=== PATIENT | female | born 1970 ===

== ENCOUNTER 2018-05-12 08:50 | Emergency (ER) | payer OTHER ==
[2018-05-12 09:27] LABS: HCG,QUALITATIVE URINE NEGATIVE (NEGATIVE)
[2018-05-12 09:29] LABS: SQUAMOUS EPITHIAL 1 /hpf (0-5); URINE BACTERIA RARE (<OCC); URINE BILIRUBIN NEGATIVE (NEGATIVE); URINE BLOOD 3+ (NEGATIVE); URINE COLOR Yellow (YELLOW); URINE GLUCOSE (UA) NORMAL (Normal); URINE LEUKOCYTE ESTERASE TRACE Leu/uL (Negative); URINE PROTEIN NEGATIVE (NEGATIVE); URINE UROBILINOGEN NORMAL mg/dL (0.2-1.0)
[2018-05-12 09:30] LABS: URINE CLARITY SLHAZY (Clear)
[2018-05-12] MEDS ORDERED: Alum-Mag Hydrox-Simethicone Susp (30 mL) PO STA (09:39)
--- NOTE | 2018-05-12 09:42 | C.PDOC ---
History Of Present Illness 47 year old female presents to the ED for evaluation of abdominal cramping and loose stool x5 that began 5am this morning. Patient reports she ate beef soup for dinner which she believes resulted in her current symptoms. She notes the family ate the same meal, they don't express similar symptoms. Admits to drinking a mixture of lemon and coca-cola with no improvement. Denies vomiting, nausea, fever, and any other associated symptoms. Time Seen by Provider: 05/12/18 09:02 Chief Complaint (Nursing): GI Problem History Per: Patient History/Exam Limitations: no limitations Onset/Duration Of Symptoms: Hrs Current Symptoms Are (Timing): Still Present Context: Food (beef soup.) Past Medical History Reviewed: Historical Data, Nursing Documentation, Vital Signs Vital Signs: Last Vital Signs Temp 97.9 F 05/12/18 09:05 Pulse 72 05/12/18 09:05 Resp 16 05/12/18 09:05 BP 130/81 05/12/18 09:05 Pulse Ox 97 05/12/18 09:05 Family History: States: Unknown Family Hx - Social History Hx Tobacco Use: No Hx Alcohol Use: Yes Hx Substance Use: No - Immunization History Hx Tetanus Toxoid Vaccination: No Hx Influenza Vaccination: No Hx Pneumococcal Vaccination: No Review Of Systems Except As Marked, All Systems Reviewed And Found Negative. Constitutional: Negative for: Fever Gastrointestinal: Positive for: Abdominal Pain (cramping.), Diarrhea (loose stool x5). Negative for: Nausea, Vomiting Physical Exam - Physical Exam Appears: Non-toxic, No Acute Distress, Other (obese female.) Skin: Normal Color, Warm, Dry Head: Atraumatic, Normacephalic Eye(s): bilateral: Normal Inspection Oral Mucosa: Moist Neck: Normal ROM, Supple Chest: Symmetrical, No Deformity Cardiovascular: Rhythm Regular, No Murmur Respiratory: Normal Breath Sounds, No Rales, No Rhonchi, No Wheezing Gastrointestinal/Abdominal: Normal Exam, Bowel Sounds (normal.), Soft, No Tenderness, No Distention, No Guarding, No Rebound Neurological/Psych: Oriented x3, Normal Speech ED Course And Treatment O2 Sat by Pulse Oximetry: 97 (RA) Pulse Ox Interpretation: Normal Medical Decision Making Medical Decision Making: diarrhea x 5 liquid stools w belly cramping belly benign no sick contacts @ home 3 other in family ate same beef soup last night ? viral vs food symptomatic relief no w/u indicated. Plan: -Urine HCG Urinalysis Bentyl Maalox Plus Progress/Update: Patient stable for discharge home. Prescribed Dicyclomine. Disposition Doctor Will See Patient In The: Office Counseled Patient/Family Regarding: Studies Performed, Diagnosis - Disposition Referrals: [facility] [Outside] [facility] [Outside] [facility] [Outside] Disposition: HOME/ ROUTINE Disposition Time: 09:42 Condition: GOOD Additional Instructions: laureano mecca agua/te/gatorade Dieta Blanda: Banana, arroz allen, manzana, sepulveda pao Bendyl 10 mg 3 veces al rosalba par cramps del abdomen Maalox 30 cc (lashae cucharada) cada 2-3 horas brigida necessario Sigue en [facility] brigida necessario. Prescriptions: Dicyclomine [Dicyclomine HCl] 10 mg PO TID PRN #10 cap PRN Reason: cramps Instructions: Diarrhea in Adolescents and Adults Forms: [employer] (Nepalese), Work Excuse Print Language: CAMEROONIAN - Clinical Impression Clinical Impression: Diarrhea - Scribe Statement The provider has reviewed the documentation as recorded by the Scribe (Keshia Lau) Provider Attestation: All medical record entries made by the Scribe were at my direction and personally dictated by me. I have reviewed the chart and agree that the record accurately reflects my personal performance of the history, physical exam, medical decision making, and the department course for this patient. I have also personally directed, reviewed, and agree with the discharge instructions and disposition.
[2018-05-12] MEDS ORDERED: Aluminum Hydroxide/Magnesium Hydroxide Susp (30 mL) ONE (09:56)
[2018-05-12 11:23] VITALS: BP 130/81; PULSE 72; RESP 16; TEMP 97.9; O2SAT 97
== END 2018-05-12 09:59 | disposition home or self-care (01) ==
LOC: C.ER 08:50
DX: R19.7 Diarrhea, unspecified (principal)

== ENCOUNTER 2018-06-09 18:52 | Emergency (ER) | payer SELFPAY ==
[2018-06-09 18:59] VITALS: BP 139/83; PULSE 78; RESP 18; TEMP 97.8; O2SAT 95
--- NOTE | 2018-06-09 19:21 | C.PDOC ---
History Of Present Illness 48 year old female presents to the ED for evaluation of pain to the right thigh pain for two weeks. Patient reports she was seen by Dr. Simpson 2 weeks ago, diagnosed with shingles, and prescribed an unknown medication for the rash with improvement. Patient followed up with Dr. Simpson 8 days ago for current pain, was prescribed Percocet and Neurontin, with no significant improvement prompting ED visit. Denies fever, trauma, change in sensation, nausea, vomiting, dysuria, urinary changes, and any other associated symptoms. Time Seen by Provider: 06/09/18 19:12 Chief Complaint (Nursing): Abnormal Skin Integrity History Per: Patient, Family (daughter) History/Exam Limitations: no limitations Onset/Duration Of Symptoms: Days Current Symptoms Are (Timing): Still Present Past Medical History Reviewed: Historical Data, Nursing Documentation, Vital Signs Vital Signs: Last Vital Signs Temp 97.8 F 06/09/18 18:56 Pulse 78 06/09/18 18:56 Resp 18 06/09/18 18:56 BP 139/83 06/09/18 18:56 Pulse Ox 95 06/09/18 18:56 Family History: States: Unknown Family Hx - Social History Hx Tobacco Use: No Hx Alcohol Use: Yes Hx Substance Use: No - Immunization History Hx Tetanus Toxoid Vaccination: No Hx Influenza Vaccination: No Hx Pneumococcal Vaccination: No Review Of Systems Except As Marked, All Systems Reviewed And Found Negative. Constitutional: Negative for: Fever Gastrointestinal: Negative for: Nausea, Vomiting Genitourinary: Negative for: Dysuria, Frequency, Incontinence Musculoskeletal: Positive for: Leg Pain (right leg pain secondary to shingles. ) Physical Exam - Physical Exam Appears: Well, Non-toxic, No Acute Distress Skin: Warm, Dry Head: Atraumatic, Normacephalic Eye(s): bilateral: Normal Inspection, EOMI Nose: Normal Oral Mucosa: Moist Neck: Normal ROM, Supple Chest: Symmetrical Respiratory: No Accessory Muscle Use, Other (no acute respiratory distress.) Gastrointestinal/Abdominal: Soft, No Tenderness Back: No CVA Tenderness, No Vertebral Tenderness, No Straight Leg Raising Extremity: Normal ROM (x4), Tenderness (diffiuse buttock and thigh tenderness, no swelling, hyperpigmentation from resolving rash), No Pedal Edema, Capillary Refill (less than 2 seconds.), No Deformity, No Swelling Extremity: Bilateral: Atraumatic, Normal ROM Pulses: Left Dorsalis Pedis: Normal, Right Dorsalis Pedis: Normal Neurological/Psych: Oriented x3, Normal Speech, Normal Motor, Normal Sensation Gait: Steady ED Course And Treatment O2 Sat by Pulse Oximetry: 95 (RA) Pulse Ox Interpretation: Normal Progress Note: Instructed symptomatic treatment and follow up with PMD in 1-2 days. Prescribed Naproxen and Zostrix. Disposition - Disposition Disposition: HOME/ ROUTINE Disposition Time: 19:21 Condition: STABLE Additional Instructions: Vaya a brenner mdico o la clnica en 2-5 freitas sin falta, para mas evaluacin. [place] los medicamentos brigida indicado. Volver a la peyton de emergencia en cualquier momento si los sntomas persisten o empeoran. Prescriptions: Capsaicin [Zostrix] 1 appl TP TID #1 cream..g. Naproxen [Naprosyn] 1 tab PO BID PRN #20 tab PRN Reason: Pain Instructions: Shingles (DC) Forms: [employer] (Amharic) Print Language: SPA - Clinical Impression Clinical Impression: Postherpetic neuralgia - PA / [employer] / Resident Statement MD/DO has reviewed & agrees with the documentation as recorded. - Scribe Statement The provider has reviewed the documentation as recorded by the Scribe (Keshia Lau) All medical record entries made by the Scribe were at my direction and personally dictated by me. I have reviewed the chart and agree that the record accurately reflects my personal performance of the history, physical exam, medical decision making, and the department course for this patient. I have also personally directed, reviewed, and agree with the discharge instructions and disposition.
== END 2018-06-09 19:32 | disposition home or self-care (01) ==
LOC: C.ER 18:52
DX: B02.29 Other postherpetic nervous system involvement (principal)